=== PATIENT | male | born 1985 | race African-American/Black ===

== ENCOUNTER 2017-12-26 12:21 | Emergency (ER) | payer BC, OTHER ==
--- NOTE | 2017-12-26 13:19 | EDM.PDOC ---
ED HPI GENERAL MEDICAL PROBLEM - General Chief Complaint: Skin Complaint Stated Complaint: RASH ON NECK Time Seen by Provider: 12/26/17 13:15 Source of Information: Reports: Patient History Limitations: Reports: No Limitations - History of Present Illness INITIAL COMMENTS - FREE TEXT/NARRATIVE: HISTORY AND PHYSICAL: History of present illness: Patient is a 32-year-old male who presents to the emergency room with complaints of a rash to the back of his neck 4 days. He states that the rash severity fluctuates depending on temperature. He states when he gets really hot or warm water, the rash does become itchy. He denies any ill contacts to new materials, products or medications. This rash is localized to the posterior aspect of his neck. Does not appear anywhere else on his body. He denies any fever, chills, chest pain, shortness of breath or cough. He denies any abdominal pain or nausea, vomiting, diarrhea or constipation. Review of systems: As per history of present illness and below otherwise all systems reviewed and negative. Past medical history: As per history of present illness and as reviewed below otherwise noncontributory. Surgical history: As per history of present illness and as reviewed below otherwise noncontributory. Social history: No reported history of drug or alcohol abuse. Family history: As per history of present illness and as reviewed below otherwise noncontributory. Physical exam: General: Well-developed and well-nourished 32-year-old -[place] male. Alert and oriented. Nontoxic appearing and in no acute distress. HEENT: Atraumatic, normocephalic, pupils equal and reactive bilaterally, negative for conjunctival pallor or scleral icterus, mucous membranes moist, throat clear, neck supple, nontender, trachea midline. No drooling or trismus noted. No meningeal signs Lungs: Clear to auscultation, breath sounds equal bilaterally, chest nontender. Heart: S1S2, regular rate and rhythm without overt murmur Abdomen: Soft, nondistended, nontender. Negative for masses or hepatosplenomegaly. Negative for costovertebral tenderness. Pelvis: Stable nontender. Genitourinary: Deferred. Rectal: Deferred. Skin: There does appear to be a slightly raised area nonspecific rash to the back and neck. No erythema. This is localized to the posterior neck (exposed area above the t-shirt and below his hairline). NO cerntal umbilicus or vesicular component to this rash is noted. Otherwise skin is intact, warm, dry. No lesions noted. Extremities: Atraumatic, negative for cords or calf pain. Neurovascular unremarkable. Neuro: Awake, alert, oriented. Cranial nerves II through XII unremarkable. Cerebellum unremarkable. Motor and sensory unremarkable throughout. Exam nonfocal. Diagnostics: None Therapeutics: None Prescription: Medrol DosePak Impression: Atopic Dermatitis Plan: 1. Take oral steroid as directed. 2. Take [id number] Benadryl and cortisone cream as directed 3. Avoid hot showers this is caused increased itching. After showering please apply a thick emoliant cream like Eucerine 4. Follow up with primary care provider. Return to the ED as needed and as discussed. Definitive disposition and diagnosis as appropriate pending reevaluation and review of above. - Related Data Allergies Allergy/AdvReac Type Severity Reaction Status Date / Time No Known Allergies Allergy Verified 12/26/17 12:51 Home Meds: Home Meds . [No Known Home Meds] 02/03/14 [History] Past Medical History - Past Health History Medical/Surgical History: Denies Medical/Surgical History Social & Family History - Family History Family Medical History: Noncontributory - Tobacco Use Smoking Status *Q: Never Smoker - Caffeine Use Caffeine Use: Reports: None - Recreational Drug Use Recreational Drug Use: No ED ROS GENERAL - Review of Systems Review Of Systems: ROS reveals no pertinent complaints other than HPI. ED EXAM, SKIN/RASH Exam: See Below (See dictation) Course - Vital Signs Last Recorded V/S: Last Vital Signs Temp 98.7 F 12/26/17 12:49 Pulse 61 12/26/17 12:49 Resp 16 12/26/17 12:49 BP 117/78 12/26/17 12:49 Pulse Ox 97 12/26/17 12:49 Departure - Departure Time of Disposition: 13:26 Disposition: Home, Self-Care 01 Clinical Impression: Atopic dermatitis, mild - Discharge Information Instructions: Atopic Dermatitis Referrals: PCP,None [Primary Care Provider] - Forms: ED Department Discharge Additional Instructions: The following information is given to patients seen in the emergency department who are being discharged to home. This information is to outline your options for follow-up care. We provide all patients seen in our emergency department with a follow-up referral. The need for follow-up, as well as the timing and circumstances, are variable depending upon the specifics of your emergency department visit. If you don't have a primary care physician on staff, we will provide you with a referral. We always advise you to contact your personal physician following an emergency department visit to inform them of the circumstance of the visit and for follow-up with them and/or the need for any referrals to a consulting specialist. The emergency department will also refer you to a specialist when appropriate. This referral assures that you have the opportunity for follow-up care with a specialist. All of these measure are taken in an effort to provide you with optimal care, which includes your follow-up. Under all circumstances we always encourage you to contact your private physician who remains a resource for coordinating your care. When calling for follow-up care, please make the office aware that this follow-up is from your recent emergency room visit. If for any reason you are refused follow-up, please contact the [facility] Emergency Department at and asked to speak to the emergency department charge nurse. [facility] [address] [place] [id number] 1. Take oral steroid as directed. 2. Take [id number] Benadryl and cortisone cream as directed 3. Avoid hot showers this is caused increased itching. After showering please apply a thick emoliant cream like Eucerine 4. Follow up with primary care provider. Return to the ED as needed and as discussed.
== END 2017-12-26 13:33 | disposition home or self-care (01) ==
LOC: MW.ED 12:21
DX: L20.9 Atopic dermatitis, unspecified (principal); L23.9 Allergic contact dermatitis, unspecified cause
CPT/HCPCS: 99282

== ENCOUNTER 2018-01-02 19:03 | Emergency (ER) | payer OTHER ==
--- NOTE | 2018-01-02 23:15 | EDM.PDOC ---
ED HPI GENERAL MEDICAL PROBLEM - General Chief Complaint: Abdominal Pain Stated Complaint: STOMACH PAIN Time Seen by Provider: 01/02/18 23:01 Source of Information: Reports: Patient History Limitations: Reports: No Limitations - History of Present Illness INITIAL COMMENTS - FREE TEXT/NARRATIVE: HISTORY AND PHYSICAL: History of present illness: 32-year-old male presenting to emergency department with chief complaint of heartburn/stomach pain starting this evening. Patient states that tonight when he was drinking water he began to have some heartburn and stomach pain. He's had this before but not as severe. Pain was intermittent and burning. Denies any overt chest pain or history of cardiopulmonary disease. Denies any recent fever, chills, nausea, vomiting, or diarrhea. Otherwise he is generally healthy and has no significant past medical history. No pain on exam. Review of systems: As per history of present illness and below otherwise all systems reviewed and negative. Past medical history: As per history of present illness and as reviewed below otherwise noncontributory. Surgical history: As per history of present illness and as reviewed below otherwise noncontributory. Social history: No reported history of drug or alcohol abuse. Family history: As per history of present illness and as reviewed below otherwise noncontributory. Physical exam: HEENT: Atraumatic, normocephalic, pupils reactive, negative for conjunctival pallor or scleral icterus, mucous membranes moist, throat clear, neck supple, nontender, trachea midline. Lungs: Clear to auscultation, breath sounds equal bilaterally, chest nontender. Heart: S1S2, regular, negative for clicks, rubs, or JVD. Abdomen: Soft, nondistended, nontender. Negative for masses or hepatosplenomegaly. Negative for costovertebral tenderness. Pelvis: Stable nontender. Genitourinary: Deferred. Rectal: Deferred. Extremities: Atraumatic, negative for cords or calf pain. Neurovascular unremarkable. Neuro: Awake, alert, oriented. Cranial nerves II through XII unremarkable. Cerebellum unremarkable. Motor and sensory unremarkable throughout. Exam nonfocal. Diagnostics: CBC, CMP, H. pylori Therapeutics: Famotidine 20 mg IV 1, GI cocktail 1, omeprazole 40 mg by mouth daily 14 days , Carafate 1 g by mouth 4 times a day 7 days Impression: GERD Stomach pain. Plan: CBC, CMP, and H. pylori were all negative. Patient improved before even being in the emergency department however I did treat him with famotidine as well as a GI cocktail. He felt significantly better. I did give him a prescription for omeprazole and Carafate. I also instructed him follow-up with a primary care provider and gave him information to contact one on Thursday. Patient may benefit from a EGD in the near future if he continues to have heartburn. I did discuss this with him. He is to return to emergency department if he has any new or worsening symptoms. Definitive disposition and diagnosis as appropriate pending reevaluation and review of above. abdominal pain Pain Score (Numeric/FACES): 3 - Related Data Allergies Allergy/AdvReac Type Severity Reaction Status Date / Time No Known Allergies Allergy Verified 01/02/18 20:13 Home Meds: Home Meds . [No Known Home Meds] 02/03/14 [History] Past Medical History - Past Health History Medical/Surgical History: Denies Medical/Surgical History - Infectious Disease History Infectious Disease History: Reports: None Social & Family History - Family History Family Medical History: Noncontributory - Tobacco Use Smoking Status *Q: Never Smoker - Caffeine Use Caffeine Use: Reports: None - Recreational Drug Use Recreational Drug Use: No ED ROS GENERAL - Review of Systems Review Of Systems: ROS reveals no pertinent complaints other than HPI. ED EXAM, GENERAL - Physical Exam Exam: See Below Course - Vital Signs Last Recorded V/S: Last Vital Signs Temp 98.3 F 01/02/18 20:13 Pulse 77 01/02/18 20:13 Resp 20 01/02/18 20:13 BP 131/81 01/02/18 20:13 Pulse Ox 99 01/02/18 20:13 - Orders/Labs/Meds Labs: Laboratory Tests 01/02/18 01/02/18 01/02/18 Range/Units 23:15 23:15 23:15 WBC 7.45 (4.0-11.0) K/uL RBC 6.31 H (4.50-5.90) M/uL Hgb 15.4 (13.0-17.0) g/dL Hct 44.9 (38.0-50.0) % MCV 71.2 L (80.0-98.0) fL MCH 24.4 L (27.0-32.0) pg MCHC 34.3 (31.0-37.0) g/dL RDW Std Deviation 41.3 (28.0-62.0) fl RDW Coeff of Angy 16 H (11.0-15.0) % Plt Count 175 (150-400) K/uL MPV 9.70 (7.40-12.00) fL Neut % (Auto) 43.7 L (48.0-80.0) % Lymph % (Auto) 46.4 H (16.0-40.0) % Hunt % (Auto) 8.5 (0.0-15.0) % Eos % (Auto) 1.1 (0.0-7.0) % Baso % (Auto) 0.3 (0.0-1.5) % Neut # (Auto) 3.3 (1.4-5.7) K/uL Lymph # (Auto) 3.5 H (0.6-2.4) K/uL Hunt # (Auto) 0.6 (0.0-0.8) K/uL Eos # (Auto) 0.1 (0.0-0.7) K/uL Baso # (Auto) 0.0 (0.0-0.1) K/uL Nucleated RBC % 0.0 /100WBC Nucleated RBCs # 0 K/uL Sodium 138 (136-148) mmol/L Potassium 4.6 (3.5-5.1) mmol/L Chloride 102 (98-107) mmol/L Carbon Dioxide 30.9 (21.0-32.0) mmol/L BUN 35 H (7.0-18.0) mg/dL Creatinine 1.3 (0.8-1.3) mg/dL Est Cr Clr Drug Dosing 79.23 mL/min Estimated GFR (MDRD) > 60.0 ml/min Glucose 100 (74-106) mg/dL Calcium 9.8 (8.5-10.1) mg/dL Total Bilirubin 0.7 (0.2-1.0) mg/dL AST 36 (15-37) IU/L ALT 63 (14-63) IU/L Alkaline Phosphatase 52 (46-116) U/L Total Protein 8.1 (6.4-8.2) g/dL Albumin 4.0 (3.4-5.0) g/dL Globulin 4.1 H (2.0-3.5) g/dL Albumin/Globulin Ratio 1.0 L (1.3-2.8) H. pylori IgG Antibody NEGATIVE (NEG) Meds: Medications Discontinued Medications Generic Name Dose Route Start Last Admin Trade Name Freq PRN Reason Stop Dose Admin Famotidine 20 mg 01/02/18 23:31 01/02/18 23:39 Pepcid IVPUSH 01/02/18 23:32 20 mg ONETIME ONE Administration Departure - Departure Time of Disposition: 00:40 Disposition: Home, Self-Care 01 Condition: Good Clinical Impression: Stomach pain GERD (gastroesophageal reflux disease) Qualifiers: Esophagitis presence: esophagitis presence not specified Qualified Code(s): K21.9 - Gastro-esophageal reflux disease without esophagitis - Discharge Information Referrals: PCP,None [Primary Care Provider] - Forms: ED Department Discharge Additional Instructions: My general discharge The following information is given to patients seen in the emergency department who are being discharged to home. This information is to outline your options for follow-up care. We provide all patients seen in our emergency department with a follow-up referral. The need for follow-up, as well as the timing and circumstances, are variable depending upon the specifics of your emergency department visit. If you don't have a primary care physician on staff, we will provide you with a referral. We always advise you to contact your personal physician following an emergency department visit to inform them of the circumstance of the visit and for follow-up with them and/or the need for any referrals to a consulting specialist. The emergency department will also refer you to a specialist when appropriate. This referral assures that you have the opportunity for follow-up care with a specialist. All of these measure are taken in an effort to provide you with optimal care, which includes your follow-up. Under all circumstances we always encourage you to contact your private physician who remains a resource for coordinating your care. When calling for follow-up care, please make the office aware that this follow-up is from your recent emergency room visit. If for any reason you are refused follow-up, please contact the [facility] Emergency Department at and asked to speak to the emergency department charge nurse. [facility] [address] [place] [id number] Please call above number to follow-up with a primary care provider. Be sure to tell them that you were seen in the emergency department and they will need to be seen as soon as possible. Take medication as prescribed. Return to emergency department if any new or worsening symptoms.
[2018-01-02] MEDS ORDERED: Famotidine 20 MG/2 ML SDV IVPUSH ONE (23:31)
[2018-01-02 23:52] LABS: CHLORIDE,CL 102 mmol/L (98-107); SODIUM,NA 138 mmol/L (136-148)
== END 2018-01-03 01:20 | disposition home or self-care (01) ==
LOC: MW.ED 19:03
DX: K21.9 Gastro-esophageal reflux disease without esophagitis (principal)
CPT/HCPCS: 80053; 85025; 86677; 96374; 99284; J3490; 99283

== ENCOUNTER 2018-01-03 08:32 | Emergency (ER) | payer OTHER ==
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
== END 2018-01-03 09:40 | disposition home or self-care (01) ==
LOC: MW.ED 08:32
DX: Z13.9 Encounter for screening, unspecified (principal)
CPT/HCPCS: 99282

== ENCOUNTER 2018-01-08 15:47 | Emergency (ER) | payer OTHER ==
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
== END 2018-01-08 17:50 | disposition home or self-care (01) ==
LOC: MW.ED 15:47
DX: R20.8 Other disturbances of skin sensation (principal); F41.9 Anxiety disorder, unspecified
CPT/HCPCS: 82962; 99282; 99283